=== PATIENT | male | born 1995 | race Caucasian/White ===

== ENCOUNTER 2024-12-12 14:21 | Emergency (ER) | payer BC ==
[~2024-12-12] VITALS: Ht 185.4 cm; Wt 129.3 kg
[2024-12-12 14:50] VITALS: BP 143/93
[2024-12-12] MEDS ORDERED: Ketorolac Tromethamine 30mg Vial IM ONE (16:15)
== END 2024-12-12 16:43 | disposition home or self-care (01) ==
LOC: ER 14:21
DX: S00.11XA Contusion of right eyelid and periocular area, initial encounter (principal); Y04.0XXA Assault by unarmed brawl or fight, initial encounter
CPT/HCPCS: 70480; 99283-25; J1885